=== PATIENT | male | born 1965 | race Caucasian/White ===

== ENCOUNTER 2018-10-06 17:26 | Emergency (ER) | payer BC ==
[2018-10-06 17:53] VITALS: TEMP 98.5
[2018-10-06 19:51] VITALS: BP 135/86; O2SAT 97
== END 2018-10-06 19:48 | disposition home or self-care (01) ==
LOC: ER 17:26
DX: S62.337A Displaced fracture of neck of fifth metacarpal bone, left hand, initial encounter for closed fracture (principal); Z87.891 Personal history of nicotine dependence; Z85.828 Personal history of other malignant neoplasm of skin; W22.8XXA Striking against or struck by other objects, initial encounter; Y93.89 Activity, other specified; Y92.9 Unspecified place or not applicable